=== PATIENT | male | born 1960 | race Caucasian/White ===

== ENCOUNTER 2023-12-03 11:54 | Inpatient (IN) | payer MEDICARE, SELFPAY ==
[2023-10-24 12:21] VITALS: BMI 36.6
[2023-11-28 09:44] VITALS: BMI 38.6
[2023-12-03] VITALS (9 sets, daily range): BP systolic 125–165; BP diastolic 65–99; PULSE 71–86; RESP 12–19; TEMP 36.3–37; O2SAT 91–98; BMI 37.1
--- NOTE | 2023-12-03 | DI.RAD.S_ITS ---
PROCEDURE: XR LUMBAR SPINE 2-3V INDICATIONS: TLIF L4-5 TECHNIQUE: 2 intraoperative fluoroscopic views of the lumbar spine were acquired. COMPARISON: None. FINDINGS: Intraoperative fluoroscopic images of lower lumbar spine shows posterior fusion at L4-5 level with surgical hardware and intervertebral spacer in place. IMPRESSION: Fluoro guidance was provided intraoperatively for TLIF at L4-5 level performed by ordering physician. Dictated by: Tawanda Torres M.D. on 12/04/2023 at 10:30 Approved by: Tawanda Torres M.D. on 12/04/2023 at 10:30
[2023-12-03] MEDS: LACTATED RINGERS 1,000 ML 42 ML IV ×2 (13:22→16:18)
[2023-12-03] MEDS: ACETAMINOPHEN 325 MG TABLET 975 MG PO (13:24)
--- NOTE | 2023-12-03 14:01 | PM.PREOP ---
Pre-operative Note Interval Note History & Physical reviewed/Exam performed by Physician: Yes Changes to H&P: No
--- NOTE | 2023-12-03 14:24 | SUR.OPER ---
Prone on spine table, head in foam head support, padded chest and pelvic supports, gel pad at knees, lower legs supported by pillows; nipples, genitalia and toes free of pressure, arms secured on foam padded arm boards at <90 degrees abduction. Tape over blanket at thigh secured to table.
[2023-12-03] MEDS: CEFAZOLIN 2 GM/100 ML PREMIX 100 ML IV (14:33)
[2023-12-03] MEDS: BUPIVACAINE 0.25% (PF) 30 ML, EPINEPHrine 0.15 MG INJ (15:19)
[2023-12-03] MEDS: BUPIVACAINE LIPOSOME 266 MG/20 ML VIAL INJ ×2 (15:22→15:41)
--- NOTE | 2023-12-03 17:32 | P.OP_ITS ---
Operative Date/Time/Diagnoses Date of procedure: 12/03/23 Time of procedure: 14:00 Pre-op diagnosis: 1. L4-5 spondylolisthesis 2. L4-5 spinal stenosis with neurogenic claudication 3. L5-S1 disc herniation Post-op diagnosis: same Procedure & Clinicians Procedure: 1. L4-5 Postero-lateral and posterior interbody fusion 2. L4-5 interbody cage placement. 3. L4-5 decompressive laminectomy with bilateral facetecomies 4. L4-5 Posterior non-segmental instrumentation 5. L5-S1 left hemilaminectomy 6. [place] of bone marrow from iliac crest 7. Utilization of microsurgical technique and operating microscope 8. Utilization of robotic assisted navigation Same procedure as scheduled: Yes Indications: Patient has been having chronic back pain and worsening lumbar radiculopathy and symptoms of neurogenic claudication. Patient was found to have L4-5 spondylolisthesis with spinal stenosis and L5-S1 disc herniation correlating with his symptoms. Patient failed multiple conservative management with worsening pain weakness and numbness in his lower extremity. Patient has been having difficulty performing activity of daily living. After discussing risks benefits of treatment options, patient elected proceed with surgery. Surgeon: Wallace Hollins Special Inspector: Ela Walker Click Yes if Unassisted: No Anesthesia Type: General Operative Notes Closure Type: primary Specimen(s): none sent Prosthetic devices, grafts, tissues, transplants, or devices: Globus CREO MIS screws, Rise cage Applied: catheter Estimated Blood Loss (mL): 50 Blood products transfused: none Procedure in detail: Patient was seen in the preoperative area. Risks and benefits of the surgery was discussed with the patient. Informed consent was obtained from the patient and placed in the chart. Surgical site was marked. Patient was taken to the operative room. General anesthesia was administered. Prophylactic antibiotic was given to the patient less than 30 min before the incision was made. Patient was placed into a prone position on the Arnol table. Patient's back was then prepped and draped in the sterile fashion. Time-out was performed at this time. After patient was prepped and draped, patient's PSIS was palpated and marked bilaterally. Small 1 cm incision was made over the PSIS for placement of the reference probes. Two trocar was placed into the PSIS 1 on each side. The reference probe was attached to the trocar of the reference apparatus. At this time the C-arm imaging was used to confirm AP and lateral of L4-5 vertebrae and merged the C-arm imaging using the Hyperformix robotic navigation system with the CT of the lumbar spine. After successful merging was completed and confirmed, skin marker was used to randy out the skin incision using the Hyperformix robotic arm. Bilateral incision was made at this time. Pre templated trajectory was used and guided using the Hyperformix robotic navigation system for bilateral L4-5 pedicle screw placement. This was done by using the robotic arm to guide the high-speed bur to make a cortical entry point. Next a drill was placed also using the robotic arm and guided using the navigation system drilling partially through bilateral L4 and L5 pedicles. Next L4-5 pedicle screws it was pre templated and measured was placed onto the power fleet driver and inserted into the pedicles bilaterally. After all 4 screws were placed C-arm imaging was taken of both AP and lateral to confirm the placement. Excellent placement of the screws were confirmed and a matched precisely with the pre planned screw placement using the navigation system. MARs retractor was inserted using Ofelia Felizivation guidence. Globus MARS retractors was placed inside the incision and docked onto the L4 lamina. Using microsurgical technique and operating microscope, a L4 laminectomy and L4-5 facetectomy was performed using a Kerrison rongeur. Patient was found have severe lateral recess and neural foramen stenosis which was fully decompressed after the laminectomy facetectomy. More than 75% of the facets were removed during the process of decompression rendering L4-5 level grossly unstable and required a fusion procedure at the same time. The disc space at L4-5 was identified, and a total diskectomy was performed at L4-5 level. The endplates were decorticated using a rasp and shaver. The total diskectomy and decortication was performed at L4-5 level in order to to accomplish a L4-5 f usion. The local bone from the laminectomy and facetectomy was saved for local bone grafting. After the total diskectomy and decortication was completed, Viacel bone graft material was combined with local bone that was harvested earlier. At this time, a separate skin is incision was made over the iliac crest. A Jamshidi needle was inserted into the iliac crest through a separate skin incision on the right. 5 cc of bone marrow aspiration was obtained through the separate skin incision using a Jamshidi needle from the iliac crest. The bone marrow aspiration was combined with local bone and the Viacel bone grafting material. The bone grafting material was placed into the L4-5 interbody space along with a expandable cage. The cage was expanded to its maximum height using the torque limiting screwdriver. The disc preparation as well as the cage insertion were also performed under navigation guidance. After the cage was placed, AP and lateral C-arm imaging was taken to confirm placement of the cage and excellent position was confirmed. The MARs retractor was then redirected over the L5-S1 interval on the left side. Using microsurgical technique and operating microscope a L5-S1 hemilaminectomy and microdiskectomy was performed on the left side. The area of was inspected after the microdiskectomy and decompression was completed. No other impinging structure was identified. Globus MARS retractor was inserted and docked onto the L4-5 posterolateral gutter on the right side. Using the power drill, posterior-lateral decortication was performed at L5-S1 level until bleeding cortical bone was identified. The remaining bone grafting material was placed into the L4-5 posterior lateral gutter he order to accomplish posterolateral fusion at the L5- S1 level. At this time the tulips were attached to the L4-5 pedicle screw shanks. After measuring the length of the rods, they were inserted into the tulips of the pedicle screws and locked in place using locking caps and torque limiting screwdriver bilaterally. Total 4 caps and 2 titanium rods was used in order to complete the posterior instrumentation construct. After all the hardware was placed, and confirmed with AP and lateral C-arm imaging, the wound was then irrigated with sterile normal saline and packed with Ray-Kj gauze for 3 min to accomplish hemostasis. After the gauze was removed the deep fascia was closed with #1 Vicryl suture. The subcutaneous layer was closed with 2-0 Vicryl. The skin was closed with skin oleg. Patient tolerated the procedure well. There were no complications. Neuro monitoring system was used to monitor patient's neurologic status throughout entire procedure. There was no disturbance of the neural monitoring signals throughout the case. The Operation could not have been safely performed without compromising the technical result or length of the procedure, without the assistance of a skilled ophthalmic surgical assistant. The ophthalmic surgical assistant was medically necessary for proper positioning, retraction and manipulation of instruments, proper exposure, surgical preparation, and manipulation of tissue. Complications: none Post-operative Condition: stable Disposition: PACU Plan for aftercare: Admit to inpatient hospital
[2023-12-03] MEDS: fentaNYL 100 MCG/2 ML INJ IV ×4 (17:50→18:13)
[2023-12-03] MEDS: hydrOXYzine 50 MG/ML INJ 25 MG IM (17:51)
[2023-12-03] MEDS: ONDANSETRON 4 MG/2 ML INJ IV (17:51)
[2023-12-03] MEDS: HYDROMORPHONE 1 MG INJ IV ×2 (18:02→18:10)
[2023-12-03] MEDS: OXYCODONE IR 5 MG TABLET PO (18:06)
[2023-12-03] MEDS: SENNOSIDES 8.6 MG TABLET 17.2 MG PO (20:02)
[2023-12-03] MEDS: DOCUSATE 100 MG CAPSULE PO (20:03)
[2023-12-03] MEDS: METFORMIN HCL 500 MG TABLET 1000 MG PO (20:56)
[2023-12-03] MEDS: HYDROMORPHONE 0.5 MG INJ IV (21:16)
[2023-12-03] MEDS: CEFAZOLIN VIAL 3 GM in SODIUM CHLORIDE 0.9% 100 ML IV (21:45)
[2023-12-04] MEDS: ACETAMINOPHEN 325 MG TABLET 650 MG PO (02:19)
[2023-12-04] MEDS: OXYCODONE IR 10 MG TABLET PO ×3 (02:19→10:03)
[2023-12-04] MEDS: CEFAZOLIN VIAL 3 GM in SODIUM CHLORIDE 0.9% 100 ML IV (05:39)
[2023-12-04 08:00] VITALS: BP 118/70; PULSE 67; RESP 16; TEMP 36.6; O2SAT 96
--- NOTE | 2023-12-04 08:02 | PM.DS.1 ---
History of Present Illness History of Present Illness Date Patient Seen: 12/04/23 Time Patient Seen: 08:03 Chief complaint: Back pain Narrative: Back pain has been mild to moderate. No fever or chills. No nausea or vomiting. Patient has not yet been out of bed. Patient does have assistance home. Discharge Providers Provider Date of admission: 12/03/23 11:54 Discharge Date: 12/04/23 Consults: 12/03/23 18:47 Consult to Occupational Therapy Evaluate & Treat Comment: Physician Instructions: Evaluate and treat Consult to Physical Therapy Evaluate & Treat Comment: Physician Instructions: Evaluate and Treat Discharge provider: Moustapha Doyle PA-C Summary Hospital Course Discharge Diagnosis: 1. L4-5 spondylolisthesis 2. L4-5 spinal stenosis with neurogenic claudication 3. L5-S1 disc herniation Hospital Course: 1. L4-5 Postero-lateral and posterior interbody fusion 2. L4-5 interbody cage placement. 3. L4-5 decompressive laminectomy with bilateral facetecomies 4. L4-5 Posterior non-segmental instrumentation 5. L5-S1 left hemilaminectomy 6. [place] of bone marrow from iliac crest 7. Utilization of microsurgical technique and operating microscope 8. Utilization of robotic assisted navigation Same procedure as scheduled: Yes Indications: Patient has been having chronic back pain and worsening lumbar radiculopathy and symptoms of neurogenic claudication. Patient was found to have L4-5 spondylolisthesis with spinal stenosis and L5-S1 disc herniation correlating with his symptoms. Patient failed multiple conservative management with worsening pain weakness and numbness in his lower extremity. Patient has been having difficulty performing activity of daily living. After discussing risks benefits of treatment options, patient elected proceed with surgery. Surgeon: Wallace Hollins Quality Control Microbiology Supervisor: Ela Walker Click Yes if Unassisted: No Anesthesia Type: General Operative Notes Closure Type: primary Specimen(s): none sent Prosthetic devices, grafts, tissues, transplants, or devices: Globus CREO MIS screws, Rise cage Applied: catheter Estimated Blood Loss (mL): 50 Blood products transfused: none Patient admitted to the hospital for the above-mentioned procedure. Patient consented to the same. Patient underwent lumbar fusion December 03, 2023. Patient back in his room recovering well as in stable condition. Patient will be on multimodal pain management. He will mobilize with physical therapy this morning. Limit bending, twisting, lifting. Patient will be discharged home today in stable condition if safe for home environment. Exam Vital Signs (past 8 hours): Oxygen Delivery Method Nasal Cannula Oxygen Flow Rate 2 Narrative Exam Narrative: 63-year-old male resting comfortably in bed in no apparent distress. Neurovascular status is intact bilateral lower extremities. Const General: cooperative and comfortable Nutritional Appearance: well nourished Orientation: alert Resp Effort & Inspection: normal respiratory effort and able to speak in complete sentences PFSH Medical History (Updated 11/28/23 @ 10:30 by Roxanne Oneill RN) Normal cardiac ejection fraction (01/07/23) Ascending aortic aneurysm Pulmonary regurgitation Pulmonary stenosis History of COVID-19 (~2021) Spinal stenosis Diabetes Kidney stones Acid reflux Palpitation Tetralogy of Fallot HLD (hyperlipidemia) HTN (hypertension) ANDREA on CPAP Surgical History (Updated 10/24/23 @ 15:02 by Amparo Alexandra RN) H/O vasectomy Hx of arthroscopy of right knee History of surgery History of open heart surgery Social History household members: spouse Smoking Status: Never smoker alcohol intake: current Discharge Assessment & Plan Assessment and Plan Assessment: Patient progressing as expected Plan of Treatment: Multimodal pain management Limit bending, twisting, lifting Keep dressing clean and dry Follow up outpatient orthopedic clinic in 2 weeks as scheduled Discharge home today after physical therapy if safe for home environment Discharge Plan Discharge orders & Medications Discharge Orders: Discharge (Order); Ordered 12/04/23 Ordered By: Moustapha Doyle Prescriptions: New acetaminophen 325 mg Tablet 650 mg PO Q6H PRN (Reason: Fever/Mild Pain (1-3)) Qty: 60 0RF polyethylene glycol 3350 17 gram Powder In Packet 17 gm PO DAILY PRN (Reason: Constipation) Qty: 10 0RF oxycodone 5 mg Tablet 5 mg PO Q3H PRN (Reason: Pain, Moderate (4-6)) Qty: 40 0RF Continued metformin 500 mg Tablet 1,000 mg PO BID glimepiride 4 mg Tablet 4 mg PO DAILY allopurinol 300 mg Tablet 300 mg PO DAILY metoprolol succinate 25 mg Tablet Extended Release 24 Hr 25 mg PO DAILY losartan 100 mg Tablet 100 mg PO DAILY aspirin 81 mg Capsule 81 mg PO DAILY atorvastatin 40 mg Tablet 40 mg PO QPM Discontinued tramadol 50 mg Tablet 50 mg PO BID acetaminophen 650 mg Tablet Extended Release 650 mg PO Q12H Follow up/Referrals: Wlalace Hollins MD [Physician] - 12/16/23 2:00 pm (Follow up with Bhavin Gonzales PA-C, at [facility] office in [place].) Diet/Activity/Treatments Diet: Diet as Tolerated Activity: No deep bending or twisting at the waist. No lifting more than 10 pounds. Skin/Wound/Dressing Care Report to your healthcare provider any signs of infection, such as:: chills, fever, night sweats, unusual drainage and unusual redness Dressing: May shower. Keep dressing as dry as possible. If dressing becomes wet or dirty, may remove and replace with clean, dry gauze. No bathing or otherwise soaking incisions. Do not apply any creams, lotions, or ointments to incisions. Visit Report/Discharge Packet Instructions: DI for Prescription Opioid Use, DI for Transforaminal Lumbar Interbody Fusion Stand Alone Forms: Patient Portal/API, Stroke Signs & Symptoms, Surgery Discharge
--- NOTE | 2023-12-04 08:57 | PT.IIE ---
Current Diagnoses Spondylolisthesis, lumbar region (12/03/23) Spinal stenosis, lumbar region with neurogenic claudication (12/03/23) Surgery Performed Operation Date: 12/03/23 14:15 Actual Procedures p L4-5 TLIF - Robot, L5-S1 Left microdiscectomy - Wallace Hollins MD Surgical History (Last Updated 10/24/23 @ 15:02 by Amparo Alexandra, RN) H/O vasectomy History of open heart surgery History of surgery Hx of arthroscopy of right knee Medical History (Last Updated 11/28/23 @ 10:30 by Roxanne Oneill, CAITLYN) Acid reflux Ascending aortic aneurysm Diabetes History of COVID-19 (~2021) HLD (hyperlipidemia) HTN (hypertension) Kidney stones Normal cardiac ejection fraction (01/07/23) ANDREA on CPAP Palpitation Pulmonary regurgitation Pulmonary stenosis Spinal stenosis Tetralogy of Fallot Physical Therapy Inpatient Evaluation/Re-Eval M1 PT/OT-IP Prior Functional Status Start: 12/04/23 08:16 Freq: NEEDED Status: Active Protocol: Document 12/04/23 08:18 MB (Rec: 12/04/23 08:57 MB [id number]) Medical Review Prior Functional Status Medical History Reviewed Yes Diet/Fluid Consistency Regular Communication WNLs Mobility and Gait I Activities of Daily Living and IADL's I, [place] [address] [place] and his son lives in one of the houses on his property. Pt lives with . Social History Household Members spouse Living Arrangements House Number of Floors (Floors) Two Floors Number of Stairs To Enter/Railing? 3 steps and no rail to enter and flight of steps to basement and pt does not have to go down there at d/c Home Environment High Toilet,Walk in Shower Home Equipment Front Wheel Walker,Straight Cane,Hand Held Shower Employment Status Retired M2 PT-IP Current Condition Start: 12/04/23 08:16 Freq: NEEDED Status: Active Protocol: Document 12/04/23 08:18 MB (Rec: 12/04/23 08:57 MB [id number]) Physical Therapy Current Condition Current Condition Evaluation Date 12/04/23 Treatment Diagnosis L4-5 fusion, L5-S1 hemilaminectomy M3 PT-IP Subjective Start: 12/04/23 08:16 Freq: NEEDED Status: Active Protocol: Document 12/04/23 08:18 MB (Rec: 12/04/23 08:57 MB [id number]) Subjective Physical Therapy Visit Type Type Initial Evaluation Visit Start Time 08:18 Visit Stop Time 08:49 Number of DUST HANDLER Visits 0 Physical Therapy Visit Comments Patient Comments Pt states his is on the way to pick him up. Therapy Pain Assessment Pain When Pain Assessed At Rest Pain Present Pain Present Pain Reported Location Low back Intensity 3 Scale Used Numeric (0 - 10) M4 PT-IP Mobility and Gait Start: 12/04/23 08:16 Freq: NEEDED Status: Active Protocol: Document 12/04/23 08:18 MB (Rec: 12/04/23 08:57 MB [id number]) PT-Bed Mobility Assessment Rolling Type of Rolling Roll to Right Level of Assist Independent Supine to Sit Supine to Sit Independent Scooting Scooting to Edge of Bed Independent PT-Transfer Assessment Sit to and From Stand Sit to and from Stand Independent,Standby Assistance Equipment Transfer Assistive Device Gait Belt,Front Wheeled Walker Orthotic/Prosthetic Devices or Brace: No Transfers Transfer Destination Chair Transfer Technique Ambulation Transfer Ability Level of Assist Independent,Standby Assistance Comments Mobility Comments BP and HR in LUE: supine 140/ 67, 75; standing 169/76, 82. Pt is able to perform log rolling to right and get up to sitting with I Gait Assessment Gait Gait Assistance Required: Independent,Standby Assistance Distance (Feet) 200 Able to Maintain Weight Bearing Status Yes During Gait Assistive Devices Assistive Device Gait Belt,Front Wheeled Walker Orthotic/Prosthetic Devices or Brace: No Gait Deviations General Gait Pattern Within Normal Limits Factors Limiting Gait Function Factors Limiting Gait Function Pain Stair Climbing Assessment Evaluation Level of Assist On Stairs Minimal Assistance,1 Person Assistance Technique/Endurance Stair Climbing Direction Ascend and Descend Stair Climbing Technique Step to Step Number of Steps Climbed 3 Query Text: Stair Climbing Set # Repetitions (reps) 1 Comments Stair Climbing Comments BACK GRAY CLOTH WASHER (CGA to min A) to ascend and descend 3 steps without rail and pt will have son assist him inside home PT-Balance Assessment Sitting Balance and Reactions Static Sitting Balance Ability Normal Dynamic Sitting Balance Ability Normal Standing Balance and Reactions Static Standing Balance Ability Good Dynamic Standing Balance Ability Fair Device Used RW M5 PT-IP Objective Assessments Start: 12/04/23 08:16 Freq: NEEDED Status: Active Protocol: Document 12/04/23 08:18 MB (Rec: 12/04/23 08:57 MB [id number]) Orientation Orientation/Cognition Level of Alertness Alert Orientation Name,Age,Birthday,Month,Date, Year,Day of Week,Place, Situation Language Function Ability No Deficits Noted Safety Awareness Understands Safety Issues Memory Description No Deficits Noted Gross Range of Motion Upper Extremity ROM Impairments Defer to OT Lower Extremity ROM Assessment Within Functional Limits Strength Lower Extremity Strength Assessment Within Functional Limits Coordination Assessment Gross Coordination Gross Coordination Impaired Assessment Coordination Comments Some trouble donning brief boxers post-op and pt sits and is able to perform Sensation Assessment Sensation Gross Sensation WNL Muscle Tone Muscle Tone WNL Yes Other Assessments Other Other Assessments Ed pt in back precautions, log rolling, benefits of ice, mobility every 30 minutes when awake at home if possible/ take short walks, monitor BP and work on good hydration M6 PT-IP Treatment Start: 12/04/23 08:16 Freq: NEEDED Status: Active Protocol: Document 12/04/23 08:18 MB (Rec: 12/04/23 08:57 [id number]) Physical Therapy Treatment Education Education Provided Precautions,Post-Op Packet, Safety M7 PT-IP Assessment and Plan Start: 12/04/23 08:16 Freq: NEEDED Status: Active Protocol: Document 12/04/23 08:18 MB (Rec: 12/04/23 08:57 MB [id number]) PT Summary Assessment and Plan Potential Rehabilitation Potential Excellent Status of Condition at Evaluation Evolving Summary Impairments Pain Progress Towards Goals Safe For Discharge,Goals Met Assessment Summary Pt is a 63 y/o male reporting tolerable pain and presenting with good mobility POD 1 lumbar fusion. He does not require any further acute PT and recommend up with nsg superv and RW. Frequency of Treatment Frequency Of Treatment Discharge Precautions Lumbar Precautions Log Roll,No Twisting,Limit Bending,Lifting Restriction of 10 lbs,Gait Belt above Incisional Area Recommendations To Nursing Amount of Assist Needed Standby Assistance Discharge Recommendations PT Discharge Recommendations Home with Assistance, Outpatient PT Transportation Needs at Discharge Private Vehicle
--- NOTE | 2023-12-04 09:13 | OT.IP.EVAL ---
Current Diagnoses Spondylolisthesis, lumbar region (12/03/23) Spinal stenosis, lumbar region with neurogenic claudication (12/03/23) Surgery Performed Operation Date: 12/03/23 14:15 Actual Procedures p L4-5 TLIF - Robot, L5-S1 Left microdiscectomy - Wallace Hollins MD Past Medical History (Last Updated 11/28/23 @ 10:30 by Roxanne Oneill, CAITLYN) Acid reflux Ascending aortic aneurysm Diabetes History of COVID-19 (~2021) HLD (hyperlipidemia) HTN (hypertension) Kidney stones Normal cardiac ejection fraction (01/07/23) ANDREA on CPAP Palpitation Pulmonary regurgitation Pulmonary stenosis Spinal stenosis Tetralogy of Fallot Surgical History (Last Updated 10/24/23 @ 15:02 by Amparo Alexandra RN) H/O vasectomy History of open heart surgery History of surgery Hx of arthroscopy of right knee Occupational Therapy Inpatient Evaluation/Re-Eval M1 PT/OT-IP Prior Functional Status Start: 12/04/23 08:16 Freq: NEEDED Status: Active Protocol: Document 12/04/23 09:13 [facility] (Rec: 12/04/23 09:25 [facility] [id number]) Medical Review Prior Functional Status Medical History Reviewed Yes Diet/Fluid Consistency Regular Communication WNLs Mobility and Gait I with increased time and pain . Activities of Daily Living and IADL's I with increased time and pain . [place] and his son lives in one of the houses on his property. Pt lives with . Social History Household Members spouse Living Arrangements House Number of Floors (Floors) Two Floors Number of Stairs To Enter/Railing? 3 steps and no rail to enter and flight of steps to basement and pt does not have to go down there at d/c Home Environment High Toilet,Walk in Shower Home Equipment Front Wheel Walker,Straight Cane,Hand Held Shower,Striker Out Employment Status Retired M2 OT-IP Current Condition Start: 12/04/23 09:13 Freq: Status: Active Protocol: Document 12/04/23 09:13 [facility] (Rec: 12/04/23 09:25 [facility] [id number]) Occupational Therapy Current Condition Current Condition Evaluation Date 12/04/23 Treatment Diagnosis S/P L4-5 TLLIF, L5-S1 Left hemilaminectomy Diagnosis Onset Date 10/16/24 Post Operative Precautions Lumbar Precautions Log Roll,No Twisting,Limit Bending,Lifting Restriction of 10 lbs,Gait Belt above Incisional Area M3 OT- IP Subjective and Pain Start: 12/04/23 09:13 Freq: Status: Active Protocol: Document 12/04/23 09:13 [facility] (Rec: 12/04/23 09:25 [facility] [id number]) OT- Subjective Occupational Therapy Visit Type Type Initial Evaluation Visit Start Time 08:45 Visit Stop Time 09:13 Occupational Therapy Visit Comments Patient Comments Pt agreed to get dressed. Patient/Caregiver Goals TO go home. OT Pain Assessment Pain When Pain Assessed At Rest Pain Present Pain Present Pain Reported Location Low back Intensity 2 Scale Used Numeric (0 - 10) M4 OT- IP ADL's Start: 12/04/23 09:13 Freq: Status: Active Protocol: Document 12/04/23 09:13 [facility] (Rec: 12/04/23 09:25 [facility] [id number]) OT [id number] General Evaluation Self-Feeding Ability Independent OT ADL-Oral Care Comments Oral Care Comments Educated best to spit into a cup or hinge at his hip in order to follow his back precautions. OT ADL-Dressing General Eval Upper Body Dressing Ability Independent Lower Body Dressing Ability Minimal Assistance Areas Needing Assistance Socks,Shoes Assistive Devices Dressing Assistive Devices Long Handled Shoe Horn,Striker Out ,Sock Aid Comments OT Dressing Comments Able to practice and use LB dressing equipment. Pt thinking of getting a sock aid , otherwise his to assist . OT ADL-Toileting General Evaluation Toileting Ability Standby Assistance Comments OT Toileting Comments Educated if standing to use the FWW over the toilet. Suggested to bring the urinal home for night use. Educated easier to stand and wipe or obtain a toilet paper aid. Pt states usually just showers after having a bowel movement. OT ADL-Bathing Comments OT Bathing Comments Pt will benefit from a shower chair and assist from his . Educated to on showering needs with the dressing. M5 OT- IP IADL's Start: 12/04/23 09:13 Freq: Status: Active Protocol: Document 12/04/23 09:13 [facility] (Rec: 12/04/23 09:25 [facility] [id number]) OT-Instrumental Activities of Daily Living Home Safety Awareness Awareness of Need for Assistance at Home Good Awareness Ability to Problem Solve Emergency Able to Problem Solve Situations Home Safety Comments Pt's to assst as needed. Medication Management Medication Management No Deficits Identified Money Management Money Management No Deficits Identified Meal Preparation Meal Preparation Caregiver Provides Assist Major Gifts Officer Major Gifts Officer Caregiver Provides Assist M6 OT- IP Functional Cognition Start: 12/04/23 09:13 Freq: Status: Active Protocol: Document 12/04/23 09:13 [facility] (Rec: 12/04/23 09:25 [facility] [id number]) Cognitive Factors Limiting Selfcare Function Cognitive Ability Level of Alertness Alert Patient Orientation Name,Age,Birthday,Month,Date, Year,Day of Week,Place, Situation Attention Span Ability Capable of Focused Attention, Capable of Sustained Attention Ability to Follow Commands Able to Follow One Step Commands Safety Awareness Decreased Recall of Precautions,Decreased Ability to Apply Precautions Cognitive Comments Cognitive Assessment Comments Pt able to recall 2/3 back precautions. Pt needing reminders to slow down and keep the FWW in front of him. OT- Vision and Hearing OT- Hearing Assessment OT- Hearing Assessment WFL OT- Vision Assessment Visual Acuity WFL Visual Attentiveness WFL Occular Pursuits WFL M7 OT- IP Mobility and Balance Start: 12/04/23 09:13 Freq: Status: Active Protocol: Document 12/04/23 09:13 [facility] (Rec: 12/04/23 09:25 [facility] [id number]) OT-Transfer Assessment Sit to and From Stand Sit to and from Stand Standby Assistance Transfers Transfer Ability Standby Assistance Technique Transfer Destination Chair,Toilet Transfer Technique Stand Step Pivot Devices Transfer Assistive Devices None,Front Wheeled Walker OT- Balance Assessment Sitting Balance and Reactions Static Sitting Balance Ability Normal Dynamic Sitting Balance Ability Good Standing Balance and Reactions Static Standing Balance Ability Good Dynamic Standing Balance Ability Good M9 OT- IP Assessment and Plan Start: 12/04/23 09:13 Freq: Status: Active Protocol: Document 12/04/23 09:13 [facility] (Rec: 12/04/23 09:25 [facility] [id number]) OT Summary Assessment and Plan Potential Rehabilitation Potential Excellent Analytic Complexity at Evaluation Low Summary OT Impairments Pain,Balance,Functional Mobility,Dressing,Toileting, Bathing,Toilet Transfers, Shower Transfers Progress Towards Goals Progressing Toward Goals Assessment Summary Pt low complexity and main barriers are pain, needing to slow down and incorporate his back precautions consciously. Pt to go home with his to assist. Goals Dressing Goal Independent,Striker Out,Sock Aid Toileting Goal Independent Bathing Goal Standby Assistance Toilet Transfer Goal Independent Shower Transfer Goal Standby Assistance Days to Meet Goals 3 Frequency of Treatment Frequency Of Treatment Once a Day Treatment Plan OT Treatment Plan ADL Training,Functional Mobility,Patient/Family Education,Discharge Planning Discharge Recommendations OT Discharge Recommendations Home with Assistance Home Equipment Needs Shower chair, sock aid, toilet paper aid Transportation Needs at Discharge Private Vehicle
[2023-12-04 09:59] VITALS: BP 118/70
[2023-12-04] MEDS: LOSARTAN 50 MG TABLET 100 MG PO (09:59)
[2023-12-04] MEDS: METOPROLOL ER 25 MG TABLET PO (09:59)
[2023-12-04] MEDS: GLIMEPIRIDE 2 MG TABLET 4 MG PO (09:59)
[2023-12-04] MEDS: METFORMIN HCL 500 MG TABLET 1000 MG PO (10:00)
[2023-12-04] MEDS: DOCUSATE 100 MG CAPSULE PO (10:00)
[2023-12-04] MEDS: allopurinoL 100 MG TABLET 300 MG PO (10:00)
--- NOTE | 2023-12-04 10:45 | PC.NURSE ---
D/c instructions reviewed with Pt. Discussed no driving while taking narcotics, and to increase fluid intake to prevent constipation. Pt dressed, IV removed, and he confirmed he had all belongings. Pt exited via w/c with OPTIMIZATION CONSULTANT to private vehicle.
--- NOTE | 2023-12-04 14:09 | CM.DANOTE ---
Initial DCP Assessment Visit Note Reviewed EMR and team rounds for status updates. Met with family at bedside at the time pt was actually discharging earlier this am, pt was found to be alert/oriented/dressed and ready for d/c. He lives independently in his own home with his in [place]. His family transported him home, no further d/c assistance or resource needs were identified during his stay. Payor: Allan CASTANEDA Attending: Dr. Hollins Discharge Planning/Care Management CM Discharge Assessment Start: 12/04/23 14:06 Freq: Status: Discharge Protocol: Document 12/04/23 14:06 [facility] (Rec: 12/04/23 14:08 [facility] [id number]) Discharge Planning Assessment Assigned Supervisor Customer Complaint Service TIA Siddiqui Advance Directives? No History Provided By Family Member,Medical Record Expected Length of Stay 1 Has Patient been admitted in last 30 No days? Prior Living Arrangements House Household Members spouse Type of transporation used prior to Drives own vehicle admit Independent with ADL's No: modified independent with spouse assistance Is patient alert and oriented? Yes Comment N/A Caregiver for Another No Community Services used prior to Physical Therapy admission: Comment accupuncture DME Already Rented / Owned Elevated Toilet Seat,FWW / Walker Patient/Family Preference OP PT Therapy Barriers to Discharge No Discharge Plan Home Community Services Physical Therapy Transportation Arrangement Family Referrals Initiated None needed Whiteboard Updated in Patient Room with Yes name and ext. # of Supervisor Customer Complaint Service Review Status In Process Please Provide Date Initial DC 12/04/23 Assessment Was Performed Pre-Anesthesia Assessment Start: 10/24/23 12:21 Freq: Status: Discharge Protocol: Document 10/24/23 12:21 [facility] (Rec: 10/24/23 12:52 [facility] [id number]) Pre-Anesthesia Assessment Patient Information Reviewed Via Phone Assessment Assessment Completed With Patient,Spouse Diagnostic Results BMP/CMP,CBC,EKG Comment Outside Labs/EKG done Primary Care Provider Ramo Richardson Seen Specialist in Last 12 Months Yes Specialist Seen Plating Engineer,Orthopedist Primary Language Hungarian Manager Of Financial Required No Height 182.88 cm Weight 122.47 kg Body Mass Index (BMI) 36.6 Hearing Ability Normal Visual Assist Glasses Dentition Type Teeth, Natural Present,Teeth, Missing Barriers to Learning None Hx Anesthesia Reactions No Hx Family Anesthesia Reaction Yes: Elderly mom had memory problems after anesthesia Hx Malignant Hyperthermia No Hx Blood Transfusions Yes: Open heart surgery age 3 Hx Blood Transfusion Reaction No Anesthesia Review Requested No Workers' Compensation Hearings Officer No alcohol intake current alcohol intake frequency holidays/special occasions only Smoking Status Never smoker Substance Use Type does not use Pain Present Pain Reported Musculoskeletal Symptoms Abnormal Gait,Back Pain, Difficulty Walking,Muscle Weakness,Numbness,Radiating Pain into Limb History of Falling (Recent or History of No ) Patient is completely paralyzed or No completely immobile Prosthesis or Orthotic Device Cane Mental Status Oriented to own ability Comment Unsteady, loss of control of right leg Is patient on oxygen? No Does patient have ANDERSEN/SOB No Hx Sleep Apnea Yes CPAP/BIPAP use prescribed and used routinely Will Bring CPAP/BIPAP DOS Yes Currently Taking a Beta Ning Yes: Metoprolol Can You Climb a Flight of Stairs Without No SOB Hx Chest Pain No Hx SOB No Hx Syncope or Dizziness No Anti-Coagulant Therapy Yes: ASA 81mg-pt will check w/ PCP on when/if to hold Has a Plating Engineer Yes Plating Engineer name Dr. Campbell @ Cardiac Testing No Hx Pacemaker/ICD No Pacemaker Rep Required? No Cardiac Clearance Received No Diet Type At Home Regular,Low Carb Dysphagia No Gastrointestinal Symptoms Constipation Bladder Pattern Urgency Urinary Catheter Present No Hx Urinary Self Catheterization No Diabetes Yes HgbA1C 9.4 Date 10/23/23 Comment Per pt 10/23/23 Hx Drug Resistant Organism No Presence of External or Internal Medical Yes: CPAP Devices Marital Status Lives With spouse Current Living Arrangements House Number of Floors (Floors) Two Floors Support System Spouse Does the Patient Have Assistance After Yes Surgery Patient Discharge Plan Description Return Home Comment Pt advised overnight length of stay per surgeon Feels Safe in Current Environment Yes Been Physically Hurt or Threatened By a No Person in Current Environment Do you have thoughts of harming yourself None or others? Are you currently considering suicide? No Do you have a plan to hurt yourself or No Plan others? Do You Have Any Spiritual Beliefs That No May Affect Your HC Choices? Do You Have Any Cultural Practices That No May Affect Your HC Choices? Comment Pentacostal Who Can We Speak to About Patient's Care Family, friends Identifying Code for Release of Patient Declines to issue Information Health Care Proxy/Next of Kin Dina () Health Care Proxy Emergency Contact Name Dina () Emergency Contact Advance Directives? No Power of Real Estate Investment Analyst No PAC Instructions Bring CPAP/BIPAP,Diabetes instructions,Durable medical equipment,Medications to take/ avoid,Nasal antibiotic,No ETOH /petroleum product on skin DOS ,NPO,Pre-surgical wash,Sturdy shoes/comfortable clothes,Do not bring valuables and remove jewelry Document 11/28/23 09:44 [facility] (Rec: 11/28/23 10:29 [facility] [id number]) Pre-Anesthesia Assessment Patient Information Reviewed Via Phone Assessment Assessment Completed With Patient,Spouse Diagnostic Results BMP/CMP,CBC,EKG Comment Outside Labs/EKG 10/23/23 Repear A1c 11/06/23 Primary Care Provider Dylan Seen Specialist in Last 12 Months Yes Specialist Seen Plating Engineer,Orthopedist Primary Language Hungarian Preferred Language Hungarian Manager Of Financial Required No Height 182.88 cm Weight 129.274 kg Body Mass Index (BMI) 38.6 Hearing Ability Normal Visual Assist Glasses Dentition Type Teeth, Natural Present,Teeth, Missing Barriers to Learning None Hx Anesthesia Reactions No Hx Family Anesthesia Reaction Yes: Elderly mom had memory problems after anesthesia Hx Malignant Hyperthermia No Hx Blood Transfusions Yes: Open heart surgery age 3 Hx Blood Transfusion Reaction No Anesthesia Review Requested No Workers' Compensation Hearings Officer No alcohol intake current alcohol intake frequency holidays/special occasions only Smoking Status Never smoker Substance Use Type does not use Pain Present Pain Reported Musculoskeletal Symptoms Abnormal Gait,Back Pain, Difficulty Walking,Muscle Weakness,Numbness History of Falling (Recent or History of No ) Patient is completely paralyzed or No completely immobile Prosthesis or Orthotic Device Cane,Front Wheel Walker Mental Status Oriented to own ability Comment Unsteady, loss of control of right leg Is patient on oxygen? No Does patient have ANDERSEN/SOB No Hx Sleep Apnea Yes CPAP/BIPAP use prescribed and used routinely Will Bring CPAP/BIPAP DOS Yes Currently Taking a Beta Ning Yes: Metoprolol 25mg daily. Can You Climb a Flight of Stairs Without No SOB Hx Chest Pain No Hx SOB No Hx Syncope or Dizziness No Anti-Coagulant Therapy Yes: ASA 81mg - last dose 11/10. Has a Plating Engineer Yes Plating Engineer name Dr. Campbell @ Cardiac Testing No: ECcho 12/18/22 EF 59%. Hx Pacemaker/ICD No Pacemaker Rep Required? No Cardiac Clearance Received No Diet Type At Home Regular,Low Carb Dysphagia No Gastrointestinal Symptoms Constipation Bladder Pattern Urgency Urinary Catheter Present No Hx Urinary Self Catheterization No Diabetes Yes HgbA1C 7.5 Date 11/20/23 Hx Drug Resistant Organism No Presence of External or Internal Medical Yes: CPAP Devices Have you had any close contact with No someone diagnosed with COVID-19? Are you experiencing any of these No symptoms symptoms? Marital Status Lives With spouse Current Living Arrangements House Number of Floors (Floors) Two Floors Number of Stairs To Enter/Railing? 3 stairs without railing to enter. Will sleep on main floor. Support System Spouse Does the Patient Have Assistance After Yes Surgery Patient Discharge Plan Description Return Home Comment Pt advised overnight length of stay per surgeon Do You Have Any Spiritual Beliefs That No May Affect Your HC Choices? Do You Have Any Cultural Practices That No May Affect Your HC Choices? Comment Pentacostal Who Can We Speak to About Patient's Care Family, friends Identifying Code for Release of Patient Declines to issue Information Health Care Proxy/Next of Kin Dina () Health Care Proxy Emergency Contact Name Dina () Emergency Contact Advance Directives? No Power of Real Estate Investment Analyst No PAC Instructions Bring CPAP/BIPAP,Diabetes instructions,Durable medical equipment,Medications to take/ avoid,Nasal antibiotic,No ETOH /petroleum product on skin DOS ,NPO,Pre-surgical wash,Sturdy shoes/comfortable clothes,Do not bring valuables and remove jewelry
== END 2023-12-04 10:49 | disposition home or self-care (01) | DRG 402 ==
PROVIDERS: Admitting Provider Orthopaedic Surgery Orthopaedic Surgery of the Spine; Referring Provider Orthopaedic Surgery Orthopaedic Surgery of the Spine; Visit Provider Orthopaedic Surgery Orthopaedic Surgery of the Spine
PROC: 0SG00AJ Fusion of Lumbar Vertebral Joint with Interbody Fusion Device, Posterior Approach, Anterior Column, Open Approach (ICD-10-PCS; principal; 2023-12-03 14:15)
DX: M43.16 Spondylolisthesis, lumbar region (principal); M48.062 Spinal stenosis, lumbar region with neurogenic claudication; M51.27 Other intervertebral disc displacement, lumbosacral region; M54.16 Radiculopathy, lumbar region; E11.9 Type 2 diabetes mellitus without complications; I10 Essential (primary) hypertension; E78.5 Hyperlipidemia, unspecified; Z79.84 Long term (current) use of oral hypoglycemic drugs
CPT/HCPCS: 72100; 76000; 82962; 97161; 97165; 97535; C1713; C9290; J0171; J0690; J1100; J1171; J2405; J2704; J3010; J3410